=== PATIENT | female | born 2000 | race Caucasian/White ===

== ENCOUNTER 2018-08-19 21:06 | Observation (INO) | payer OTHER ==
[~2018-08-19 21:06] MED LIST: ISOVUE-370 76%-LOCM 1 ML ONE
[2018-08-19 21:29] LABS: Bilirubin Negative (Negative); Blood, Urine Negative (Negative); Clarity CLEAR (Clear); Glucose, Urine (Dipstick) Negative (Negative); Leukocyte Negative (Negative); Nitrite Negative (Negative); Protein, Urine (Dipstick) Negative (Neg-Trace); Specific Gravity, Urine 1.006 (1.002-1.036); Urobilinogen 0.2 mg/dL (0.2-1.0)
[2018-08-19 21:30] LABS: Pregnancy Test - Urine (BHCG) Negative (Negative); Pregu Control Background? CLEAR/WHITE (CLR/WHITE); Pregu Control Bar Appear? YES (CONTROL BAR); Specific Gravity 1.006 (1.002-1.036)
[2018-08-19 21:45] LABS: #Monocytes 0.6 thou/uL (0.11-0.59); #Neutrophils 7.5 thou/uL (1.40-6.50); %Basophils 0.1 % (0.0-1.0); %Eosinophils 0.4 % (0.0-10.0); %Lymphocytes 20.1 % (28.0-48.0); %Monocytes 6.1 % (0.0-4.0); %Neutrophils 73.3 % (31.0-61.0); Mean Corpuscular HGB CONC 33.3 g/dL (32.0-36.0); Mean Corpuscular Hemoglobin 29.7 pg (25.0-35.0); Mean Corpuscular Volume 89.1 fL (78.0-98.0); Mean Platelet Volume 8.3 fL (7.4-10.4); Platelet Count 263 thou/uL (130-400); Red Blood Cell (RBC) Count 5.06 mill/uL (4.00-5.20); White Blood Cell (WBC) Count 10.2 thou/uL (4.8-10.8)
[2018-08-19 22:04] LABS: ALT (SGPT) 19 U/L (8-55); AST (SGOT) 40 U/L (5-30); Albumin 4.8 g/dL (3.5-5.0); Alkaline Phosphatase 56 U/L (40-150); Anion Gap 15 mmol/L (10-20); BUN (Urea Nitrogen) 12 mg/dL (8.4-21.0); Bilirubin, Total 0.6 mg/dL (0.2-1.2); Calc. Creatinine Clearance 0 mL/min (70-130); Calcium 10.6 mg/dL (7.8-10.44); Carbon Dioxide 27 mmol/L (22-29); Chloride 99 mmol/L (98-107); Estimated GFR-MDRD 90; Globulin 3.6 g/dL (2.4-3.5); Glucose 98 mg/dL (70-105); Lipase 24 U/L (8-78); Potassium 3.7 mmol/L (3.5-5.1); Protein, Total 8.4 g/dL (6.0-8.3); Sodium 137 mmol/L (136-145)
[2018-08-19 22:18] LABS: Troponin I 0.031 ng/mL (< 0.028)
--- NOTE | 2018-08-19 22:37 | RAD ---
RADIOGRAPH CHEST 2 VIEWS: 08/19/18 HISTORY: 17-year-old female with left sided chest pain. FINDINGS: There is no air space density, pulmonary edema, pleural effusion, pneumothorax, or cardiomegaly. IMPRESSION: No acute cardiopulmonary findings. flor [] POS: CHIKIS
--- NOTE | 2018-08-19 23:16 | CT ---
CTA THORAX WITH CONTRAST: 08/19/18 (Computed Tomographic Angiography, chest(noncoronary) with contrast material, and image postprocessin g) (PE protocol) HISTORY: 17-year-old female with left sided chest pain and elevated D-dimer. TECHNIQUE: IV injection of iodinated contrast: Isovue. Scan acquisition timing attempted to coincide with iodinated contrast bolus reaching maximal density in pulmonary arteries. 3D MIP reconstructions. FINDINGS: Pulmonary thromboembolism: None. Lungs: Clear. Pneumothorax: None. Pleural effusion: None. Thoracic aorta: No aneurysm or dissection. Mediastinum: No lymphadenopathy or other mass. Pina: No lymphadenopathy or other mass. There is a pectus excavatum. IMPRESSION: 1. No pulmonary thromboembolism. 2. Pectus excavatum. 3. Otherwise normal. flor[] POS: CHIKIS
[2018-08-19] MEDS ORDERED: Ketorolac Tromethamine 30 MG/ML VIAL ONE (23:31)
[2018-08-20 00:32] LABS: Amphetamine Detected (NotDetected); Barbiturates Screen Not Detected (NotDetected); Benzodiazepine Screen Not Detected (NotDetected); Cocaine Metabolite Screen Not Detected (NotDetected); Medtox Control Line Valid? VALID (VALID); Medtox Reader # READER 1; Methadone Not Detected (NotDetected); Methamphetamine Not Detected (NotDetected); Opiate Screen Not Detected (NotDetected); Oxycodone Screen Not Detected (NotDetected); Phencyclidine (PCP) Not Detected (NotDetected); THC/Cannabinoid Screen Not Detected (NotDetected); Tricyclic Screen Not Detected (NotDetected)
[2018-08-20] MEDS ORDERED: Acetaminophen 325 MG TAB PO PRN ×2 (00:40→08:00)
[2018-08-20 00:51] VITALS: BMI 20.7
[2018-08-20 01:35] LABS: Troponin I 0.023 ng/mL (< 0.028)
[2018-08-20 05:33] LABS: Troponin I 0.011 ng/mL (< 0.028)
[2018-08-20] MEDS ORDERED: Ketorolac Tromethamine 30 MG/ML VIAL IVP PRN (08:00)
[2018-08-20] MEDS ORDERED: Mag-Al 1200 mg/1200 mg/30 ML UDCUP PO PRN (08:00)
[2018-08-20] MEDS ORDERED: Ibuprofen 800 MG TAB PO PRN (08:00)
[2018-08-20] MEDS ORDERED: LISDEXAMFETAMINE DIMESYLATE 30 MG PO SCH (09:00)
[2018-08-20] MEDS ORDERED: ORTHO TRI CYCLEN PO SCH (09:00)
[2018-08-20 10:40] VITALS: TEMP 98.4
--- NOTE | 2018-08-20 11:07 | HP ---
PRIMARY CARE PHYSICIAN: Dr. Carpenter. CHIEF COMPLAINT: Chest pain. HISTORY OF PRESENT ILLNESS: Ms. Sorensen is a pleasant 17-year-old female, who has no significant past medical history. She is here as a student at [employer], and she lives with some friends in a house. Earline arauz was making dinner last night, and then, while she was doing so, she started having a fairly sharp p ain in the left side of her chest under her left breast she says. It was the worst pain she has ever felt. It seemed to get worse with certain movements, especially with lifting her arm and with breat ramandeep. She felt short of breath. Her mother, who is at the bedside, said she was even crying on the phone. She has never reacted like this before. She says that she has vomited once as well. Her fri ends felt that she should come to the emergency room for evaluation. She is on control pills, and her D-dimer was slightly elevated. For this reason, a CT scan of the chest was done. It was neg ative for pulmonary embolism; however, her troponin was slightly elevated and she has been placed on observation. Since then, she continues to have the pain in her chest. She says it does not radiate, but she was given Toradol and says it did help quite a bit. The patient denies any leg pain or leg swelling. She does admit that she is very active and works out every day. She goes to a place where they do circuit-like exercises once where they use of rower machine. They do running and lifting we ights. She says that when she runs or does exercise she has not had any problems. She does not feel dizzy or lightheaded when she exercises or when she runs. REVIEW OF SYSTEMS: All systems are reviewed and are negative except for that mentioned in the histor y of present illness. PAST MEDICAL HISTORY: Negative. PAST SURGICAL HISTORY: She has had a right arm fracture repaired. ALLERGIES: No known drug allergies. SOCIAL HISTORY: She is a student at [employer]. She is a nonsmoker, nondrinker. She denies any illicit drug use. FAMILY HISTORY: A remote history of heart disease in her great uncle, but no other immediate family. CURRENT MEDICATIONS: Include Vyvanse and Ortho Tri-Cyclen. She says she has been on that for about 5 years. PHYSICAL EXAMINATION: GENERAL: She is alert and oriented. She appears to be in no acute distress. She is well-developed and well-nourished. Alert and oriented x4. VITAL SIGNS: Blood pressure was 122/96, heart rate 116, respiratory rate of 20, temperature is 98. Currently, her blood pressure is 118/69, heart rate 67, respiratory rate of 15, temperature is 97.5. HEENT: Pupils are equal, round, and reactive. Extraocular muscles are intact. Her sclerae, she has got some mild injection in the right sclera. Throat: There is no erythema, no exudates. NECK: No adenopathy, no bruits. No jugular venous distention. LUNGS: Clear to auscultation. There is no wheezing, no rales, no rubs, no rhonchi, and she has good air movement. CARDIOVASCULAR: She does have pectus excavatum. Her heart sounds are normal. She has got a normal S1 and S2. I did not hear any S3 or S4. No murmurs, no rubs, and no clicks. ABDOMEN: Soft, it is nontender and nondistended. Positive for bowel sounds. There is no rebound, n o guarding, no organomegaly. EXTREMITIES: There is no calf pain or tenderness. No joint pains. NEUROLOGIC: Her cranial nerves II-XII are intact. Her muscle strength is 5/5 in both her upper and lower extremities. SKIN/INTEGUMENT: There are no skin changes. No rashes. LABORATORY DATA: White blood cell count is 10.2, hemoglobin 15, hematocrit is 45.1, platelet count i s 263. D-dimer 0.52. Sodium 137, potassium 3.7, chloride is 99, CO2 is 27, BUN of 12, creatinine 0. 82, glucose is 98, calcium 10.6. Troponin is 0.031. Urinalysis was negative. Urine drug screen was positive for amphetamines. ASSESSMENT AND PLAN: This is a 17-year-old female that presents with sudden onset of chest pain whil e she was cooking. The pain appears to be musculoskeletal in origin. CT scan of the chest was negat kathryn. She has a history of extensive exercise and suspect this could have been the culprit. However, given her body habitus, she has the pectus excavatum. This can be associated with some congenital h eart disease, although rare. We will go ahead and get an echocardiogram to assess her heart valves a nd ensure that she does not have some subendocardial hypertrophy, such as , and if this is negat kathryn, then I suspect her symptoms are musculoskeletal related. If the echo was not done by late this evening, this can be followed up with her wet washer machine, who she still sees in the outpatient setting.
[2018-08-20 11:19] VITALS: BP 115/63
--- NOTE | 2018-08-20 17:09 | EKG ---
Test Reason : Blood Pressure : / mmHG Vent. Rate : 096 BPM Atrial Rate : 096 BPM P-R Int : 168 ms QRS Dur : 076 ms QT Int : 330 ms P-R-T Axes : 070 079 044 degrees QTc Int : 416 ms Normal sinus rhythm Possible Left atrial enlargement Borderline ECG Confirmed by PAT LOPEZ, DR. Lu ([id number]) on 08/20/2018 5:09:07 PM Referred By: Confirmed By:DR. Tabitha STEWART MD
--- NOTE | 2018-08-20 20:50 | DIS ---
DATE OF ADMISSION: 08/20/2018 DATE OF DISCHARGE: 08/20/2018 PRIMARY CARE PHYSICIAN: Dr. Miguel Carpenter, his number is [phone]. DISCHARGE DISPOSITION: Home. PRIMARY DISCHARGE DIAGNOSIS: Chest pain, probable noncardiac, likely muscle strain. DISCHARGE MEDICATIONS: Include ibuprofen 800 mg 1 p.o. 3 times a day as needed for pain. She is to continue Ortho-Novum control once daily and Vyvanse 30 mg daily. CODE STATUS: Full code. ALLERGIES: No known drug allergies. PROCEDURES DONE DURING ADMISSION: The patient had a CT angiogram of the chest, which was negative fo r pulmonary embolism. The patient also had an echocardiogram, which was pending at the time of disch arge. HOSPITAL COURSE: Ms. Sorensen is a 17-year-old female that presented to the emergency room with compla ints of pain in the left side of her chest. She said this started while she was cooking. She is kno wn to exercise on a daily basis, doing some type of circuit training. She was placed on observation after having a CT scan of the chest, which was negative. An echocardiogram was done primarily as a p recaution to rule out any significant valvular disease or hypertrophic cardiomyopathy. The results w ere pending at the time of discharge; however, the patient reports that she has been able to exercise without any difficulty prior to this episode without any dizziness or feeling lightheadedness or fee ling faint. Therefore, I think it is safe for her to be discharged and follow up with the echo resul ts in the outpatient setting. She has been instructed to take it easy with regards to exercise and f ollow up with Dr. Carpenter in approximately 1 week. The patient also gave me her phone number while I was in the room and it is [phone] and once I receive the results, I will call and give them to h er as well. Also noted in her records, she has a contact phone number for emergency, which was .
== END 2018-08-20 15:37 | disposition home or self-care (01) ==
LOC: ERS 21:06 → 2SW 08-20 00:42
PROVIDERS: ADMIT Hospitalist; ATTEND Hospitalist
DX: R07.9 Chest pain, unspecified (principal); Z79.3 Long term (current) use of hormonal contraceptives; Z79.899 Other long term (current) drug therapy
CPT/HCPCS: 36415; 71046; 71275; 80053; 80306; 81003; 81025; 83690; 84484; 85025; 85379; 93005; 93306; 96374; G0378; J1885